=== PATIENT | female | born 1960 | race African-American/Black ===

== ENCOUNTER 2020-08-08 18:28 | Emergency (ER) | payer OTHER ==
[~2020-08-08] VITALS: Ht 162.6 cm; Wt 63.5 kg
[2020-08-08] MEDS ORDERED: CRESTOR10 MG PO (18:42)
[2020-08-08] MEDS ORDERED: OZEMPIC0.25 MG/0. SUBQ (18:42)
[2020-08-08] MEDS ORDERED: TROKENDI XR200 MG PO (18:43)
[2020-08-08] MEDS ORDERED: PROTONIX40 M2 PO (18:43)
[2020-08-08] MEDS ORDERED: BENTYL 10 MG CA10 M1 PO (18:43)
[2020-08-08] MEDS ORDERED: TRAMADOL 50 MG50 MG PO (19:58)
[2020-08-08 20:45] VITALS: BP 126/69
== END 2020-08-08 20:46 | disposition home or self-care (01) ==
LOC: ER 18:28
DX: S83.91XA Sprain of unspecified site of right knee, initial encounter (principal); I25.10 Atherosclerotic heart disease of native coronary artery without angina pectoris; Z95.1 Presence of aortocoronary bypass graft; Z90.710 Acquired absence of both cervix and uterus; Z79.2 Long term (current) use of antibiotics; Z79.899 Other long term (current) drug therapy; Z88.2 Allergy status to sulfonamides; Z88.5 Allergy status to narcotic agent; Z88.8 Allergy status to other drugs, medicaments and biological substances; Z91.040 Latex allergy status; W18.39XA Other fall on same level, initial encounter; Y93.89 Activity, other specified; Y92.89 Other specified places as the place of occurrence of the external cause; Y99.8 Other external cause status